=== PATIENT | female | born 1975 | race Caucasian/White ===

== ENCOUNTER 2022-02-15 20:28 | Emergency (ER) | payer BC, SELFPAY ==
[2022-02-15 20:30] VITALS: BP 128/78; PULSE 84; RESP 18; O2SAT 100
[2022-02-15 20:34] VITALS: BP 114/80; PULSE 71; RESP 18; TEMP 36.7; O2SAT 100; BMI 24.7
--- NOTE | 2022-02-15 21:09 | CRLHL7_ITS ---
For Patients: As a result of the Century Cures Act, medical imaging exams and procedure reports are released immediately into your electronic medical record. You may view this report before your referring provider. If you have questions, please contact your health care provider. INDICATION: Leg pain and swelling TECHNIQUE: Ultrasound venous duplex lower left extremity. Compression venous exam was performed using girard-scale, color Doppler, and spectral Doppler analysis. COMPARISON: None. FINDINGS: Sonographic imaging demonstrates the left common femoral, deep femoral, superficial femoral, popliteal,and greater saphenous and the contralateral right common femoral veins to be fully compressible with normal color Doppler blood flow. There is occlusive thrombus in 1 of 2 posterior tibial veins. IMPRESSION: Occlusive deep venous thrombus in 1 of 2 posterior tibial veins. Case discussed with Dr. Clinton at 22:56 on 02/15/2022. Dictated by Moy Bell MD @ 02/15/2022 10:58:41 PM (Electronically Signed)
[2022-02-15 21:30] VITALS: BP 120/80; PULSE 83; RESP 19; O2SAT 100
[2022-02-15 22:00] VITALS: BP 131/80; PULSE 85; RESP 15; O2SAT 100
--- NOTE | 2022-02-15 22:31 | ED_ITS ---
HPI - General Adult General Chief complaint: Extremity Pain/Injury, Lower Stated complaint: Left Ankle Swelling Time Seen by Provider: 02/15/22 21:02 Source: patient Mode of arrival: ambulatory Limitations: no limitations History of Present Illness HPI narrative: 47-year-old female coming in today concerned about lower extremity swelling. She states that she was on a flight from [place] to [place] on Friday, so that is 2 days ago, did not notice that her legs were swollen than however today she looked down and thought that her left lower extremity was significantly swollen compared to the right. She states that it does not hurt. She denies any systemic symptoms such as fevers or chills. She has no history of blood clots. Denies any family history of blood clots. She is not on any medications. Is generally healthy and active. Related Data Home Medications Medication Instructions Recorded Confirmed No Known Home Medications 02/15/22 02/15/22 Allergies Allergy/AdvReac Type Severity Reaction Status Date / Time No Known Drug Allergies Allergy Verified 02/15/22 20:40 Review of Systems Status of ROS: Reports: 10 or more systems reviewed and unremarkable except as noted in History and below PFSH [facility] Social History Smoking Status: Never smoker Do you use any of these nicotine containing products: None Second hand tobacco smoke exposure: No How often do you have a drink containing alcohol: never How often do you have six or more drinks on one occasion: Never AUDIT-C Alcohol total score: 0 Non-prescribed substance use: denies use Exam Narrative: Exam Narrative: Well-nourished well-developed patient in no acute distress. Alert and oriented. Answers questions appropriately. Mood and affect are appropriate. Thoughts are goal oriented and rational. No tangential or magical thinking noted. Patient speaks in full sentences without needing to catch their breath. HEENT: Normocephalic atraumatic. Pupils are equally round reactive to light. Extraocular muscles are intact. Conjunctivae are moist without any icterus noted. Moist mucous membranes. Posterior pharynx is normal. Neck is soft without any lymphadenopathy or thyromegaly. No masses are appreciated. Cardiovascular: Heart is regular rate and rhythm S1 and S2 are present without any murmurs. Lungs: Clear to auscultation bilaterally no wheezes rhonchi or rales are appreciated. Patient takes deep breaths without any discomfort. Extremities: Patient has mild swelling in the right lower extremity around the ankles. The left lower extremity is visibly more swollen than the right, it is not pitting. Negative Homans sign. She has good DP and PT pulses. She has no tenderness to palpation over the lynch ankle or foot. She has full range of motion at the ankle without pain. Skin: Well perfused without any obvious rashes. Const: Vital Signs, click to edit/add: Vital Signs - 24 hr 02/15/22 20:34 Temperature 98.1 F Pulse Rate [Left P ulse Oximeter] 71 Respiratory Rate 18 Blood Pressure [Ri ght Upper Arm] 114/80 Pulse Oximetry 100 Course Course Hospital Course: Given her recent history of traveling we did go ahead and proceed with a left lower extremity ultrasound. Unfortunately, ultrasound did show an occlusive thrombus in 1 of the posterior tibial veins. Vital Signs Vital signs: Initial Vital Signs Temperature 98.1 F 02/15/22 20:34 Temperature Source Temporal Artery Scan 02/15/22 20:34 Pulse Rate 71 02/15/22 20:34 Respiratory Rate 18 02/15/22 20:34 Blood Pressure 114/80 02/15/22 20:34 Blood Pressure Mean 91 02/15/22 20:34 Blood Pressure Position Supine 02/15/22 20:34 Pulse Oximetry 100 02/15/22 20:34 Oxygen Delivery Method 02/15/22 20:34 Vital Signs Temperature 98.1 F 02/15/22 20:34 Pulse Rate 71 02/15/22 20:34 Respiratory Rate 18 02/15/22 20:34 Blood Pressure 114/80 02/15/22 20:34 Pulse Oximetry 100 02/15/22 20:34 Temperature 98.1 F 02/15/22 20:34 Pulse Rate 71 02/15/22 20:34 Respiratory Rate 18 02/15/22 20:34 Blood Pressure 114/80 02/15/22 20:34 Pulse Oximetry 100 02/15/22 20:34 Medical Decision Making MDM Narrative Medical decision making narrative: 47-year-old female with DVT. We will start the patient on Xarelto. She will follow up with primary care provider in the next week. Discussed reasons to return to the ER including chest pain, shortness of breath, worsening leg pain. Patient was agreeable had no other questions. Medical Records Medical records reviewed: Yes I reviewed the patient's medical records Imaging Data Venous US: Attestation: I have reviewed the pertinent imaging results. Radiologist's impression: FINDINGS: Sonographic imaging demonstrates the left common femoral, deep femoral, superfi cial femoral, popliteal,and greater saphenous and the contralateral right common femoral veins to be fully compressible with normal color Doppler blood flow. There is occlusive thrombus in 1 of 2 posterior tibial veins. IMPRESSION: Occlusive deep venous thrombus in 1 of 2 posterior tibial veins. Discharge Plan Discharge Clinical Impression: DVT (deep venous thrombosis) Patient Disposition: Home, Self-Care Condition: Stable Additional Instructions: Follow-up with your primary care provider once you are back home. Do not stop taking the Xarelto until you are instructed to by her primary care provider. Return to the ER if you develop shortness of breath or chest pain. Wear compression stockings with travel in the future, make sure to get up and walk around frequently. Prescriptions: No Action No Known Home Medications 0RF Stand Alone Forms: [facility] Info Instructions
== END 2022-02-15 23:32 | disposition home or self-care (01) ==
PROVIDERS: Emergency Provider Family Medicine
DX: I82.442 Acute embolism and thrombosis of left tibial vein (principal)
CPT/HCPCS: 93971; 99283; 99284